=== PATIENT | male | born 1935 | race Caucasian/White ===

== ENCOUNTER 2016-12-13 16:32 | Emergency (ER) | payer MEDICARE, OTHER ==
--- NOTE | 2016-12-13 17:08 | ED.PDOC ---
History of Present Illness - General Chief Complaint: Laceration Time Seen by Provider: 12/13/16 16:59 Source: patient, family - History of Present Illness Initial Comments: PT FELL AT [employer]. STRUCK SOME METAL ON THE WAY DOWN. HAS LACERATION TO R RING FINGER AND ABRASION TO L ELBOW. Severity: moderate Improving Factors: nothing Worsening Factors: nothing Associated Symptoms: other - NO LOC Allergies/Adverse Reactions: Allergies Penicillins Allergy (Verified 12/21/15 15:48) Home Medications: Ambulatory Orders Acetaminophen [Tylenol] 500 mg PO PRN PRN 08/08/15 Aspirin [Baby Aspirin] 81 mg PO QD 08/08/15 Atorvastatin Calcium [Lipitor] 40 mg PO DAILY 08/08/15 Cetirizine HCl [ZyrTEC] 10 mg PO DAILY 08/08/15 Clopidogrel Bisulfate [Plavix] 75 mg PO QD 08/08/15 Cyanocobalamin [Vitamin B12] 1,000 mcg PO DAILY 08/08/15 Dicyclomine HCl [Bentyl] 10 mg PO BID 08/08/15 Ezetimibe [Zetia] 10 mg PO DAILY 08/08/15 Furosemide [Lasix] 40 mg PO DAILY 08/08/15 Gabapentin [Neurontin] 600 mg PO BID 08/08/15 Owasgdvovkp-Wjmcynaozsd-Uofpxs [Glucosamine & Chrondroiti] 1 pow PO DAILY HYDROcodone 5MG/APAP 325MG [[place] 5/325] 1 tab PO PRN PRN 08/08/15 Ibandronate Sodium [Boniva] 150 mg PO MONTHLY 08/08/15 Multiple Vitamins W/ Minerals [Multivital] 1 tab PO DAILY 08/08/15 Pantoprazole Sodium [Protonix] 40 mg PO DAILY 08/08/15 Polyethylene Glycol 3350 [Miralax] 17 gm PO DAILY 08/08/15 Potassium Chloride [Micro-K] 10 meq PO DAILY 08/08/15 Sertraline HCl [Zoloft] 50 mg PO DAILY 08/08/15 Triamcinolone Acetonide (Topic [Triamcinolone Acetonide] 0.1 % EX TID 08/08/15 Cephalexin Monohydrate [Keflex] 500 mg PO TID #1 cap 12/13/16 Review of Systems - Review of Systems Constitutional: Denies: chills, fever EENTM: Denies: eye pain, blurred vision Respiratory: Denies: cough, short of breath, wheezing Cardiology: Denies: chest pain, palpitations, syncope Gastrointestinal/Abdominal: Denies: abdominal pain, nausea, vomiting Genitourinary: States: no symptoms reported Musculoskeletal: States: back pain. Denies: neck pain Skin: States: other - LACERATION TO R RING FINGER AND L ELBOW OVER LATERAL EPICONDYLE Neurological: Denies: headache, numbness, weakness Endocrine: States: no symptoms reported Hematologic/Lymphatic: States: no symptoms reported Past Medical History (General) - Patient Medical History Hx Asthma: No Hx of COPD: No Hx Cardiac Disorders: Yes Hx Congestive Heart Failure: No Hx Pacemaker: No Hx Hypertension: No Hx Diabetes: No Hx Gastroesophageal Reflux: Yes Hx Cancer: No - Vaccination History Hx Tetanus, Diphtheria Vaccination: No Hx Influenza Vaccination: Yes Hx Pneumococcal Vaccination: Yes - Social History Hx Tobacco Use: No Hx Alcohol Use: No Hx Substance Use: No Family Medical History - Family History Father Family History: Unknown Physical Exam - Physical Exam General Appearance: Comfortable, No apparent distress Eye Exam: bilateral normal Ears, Nose, Throat: normal ENT inspection, other - NO EVIDENCE OF TRAUMA Neck: non-tender, full range of motion, supple, normal inspection Respiratory: lungs clear, normal breath sounds, no respiratory distress Cardiovascular/Chest: regular rate, rhythm, no murmur Gastrointestinal/Abdominal: normal bowel sounds, non tender, soft, no organomegaly Back Exam: normal inspection, vertebral tenderness - LUMBAR SPINE Extremity: normal range of motion, other - STELLATE LACERATION TO R RING FINGER MIDDLE PHALANX PALMAR ASPECT WITH SUB Q TISSUE EXPOSED AND SKIN TEAR OVER L ELBOW LATERAL EPICONDYLE. NO BONY DEF. NVI Neurologic: no motor/sensory deficits, normal mood/affect, oriented x 3 Skin Exam: normal color, warm/dry Lymphatic: no adenopathy Progress - EKG/XRAY/CT XRAY: LS SPINE, PREVIOUS KYPHOPLASTY, NO ACUTE FX NOTED. - CADENCE, NO PTX, NO DISPLACED RIB FX ON CXR OR RIB SERIES Procedures - Laceration/Wound Repair Right Finger Wound Length (cm): 3.5 - STELLATE LACERATION FLEXOR SURFACE EXPLORED, NO APPARENT TENDON INVOLVEMENT Wound Explored: no foreign body removed Betadine Prep?: Yes Anesthesia: 1% Lidocaine Wound Repaired With: sutures Suture Size/Type: 4:0, prolene Layer Closure?: No Departure - Departure Clinical Impression: Laceration of finger of right hand Qualifiers: Encounter type: initial encounter Qualifier Code: (S61.219A) Laceration without foreign body of unspecified finger without damage to nail, initial encounter Contusion of chest wall Qualifiers: Encounter type: initial encounter Laterality: left Qualifier Code: (S20.212A) Contusion of left front wall of thorax, initial encounter Skin tear of elbow without complication Qualifiers: Encounter type: initial encounter Laterality: left Qualifier Code: (S51.012A) Laceration without foreign body of left elbow, initial encounter Time of Disposition: 20:04 Disposition: Discharge to Home or Self Care Condition: Good Departure Forms: ED Discharge - Pt. Copy, Patient Portal Self Enrollment Instructions: DI for Laceration Repair -- Finger Prescriptions: Cephalexin Monohydrate [Keflex] 500 mg PO TID #1 cap Home Medications: Ambulatory Orders Acetaminophen [Tylenol] 500 mg PO PRN PRN 08/08/15 Aspirin [Baby Aspirin] 81 mg PO QD 08/08/15 Atorvastatin Calcium [Lipitor] 40 mg PO DAILY 08/08/15 Cetirizine HCl [ZyrTEC] 10 mg PO DAILY 08/08/15 Clopidogrel Bisulfate [Plavix] 75 mg PO QD 08/08/15 Cyanocobalamin [Vitamin B12] 1,000 mcg PO DAILY 08/08/15 Dicyclomine HCl [Bentyl] 10 mg PO BID 08/08/15 Ezetimibe [Zetia] 10 mg PO DAILY 08/08/15 Furosemide [Lasix] 40 mg PO DAILY 08/08/15 Gabapentin [Neurontin] 600 mg PO BID 08/08/15 Rrwwxjwqwvu-Odtpptbijyz-Iksgyv [Glucosamine & Chrondroiti] 1 pow PO DAILY HYDROcodone 5MG/APAP 325MG [[place] 5/325] 1 tab PO PRN PRN 08/08/15 Ibandronate Sodium [Boniva] 150 mg PO MONTHLY 08/08/15 Multiple Vitamins W/ Minerals [Multivital] 1 tab PO DAILY 08/08/15 Pantoprazole Sodium [Protonix] 40 mg PO DAILY 08/08/15 Polyethylene Glycol 3350 [Miralax] 17 gm PO DAILY 08/08/15 Potassium Chloride [Micro-K] 10 meq PO DAILY 08/08/15 Sertraline HCl [Zoloft] 50 mg PO DAILY 08/08/15 Triamcinolone Acetonide (Topic [Triamcinolone Acetonide] 0.1 % EX TID 08/08/15 Cephalexin Monohydrate [Keflex] 500 mg PO TID #1 cap 12/13/16
[2016-12-13] MEDS ORDERED: LIDOCAINE 1% 10 ML VIAL INJ ONE (17:34)
[2016-12-13] MEDS ORDERED: BUPIVACAINE 0.5% W/EPI 30 ML VIAL INJ ONE (17:34)
[2016-12-13] MEDS ORDERED: POVIDONE IODINE 10 % 15 ML UD TOP ONE (17:34)
[2016-12-13] MEDS ORDERED: BUPIVACAINE 0.5% 30 ML VIAL INJ ONE (17:55)
--- NOTE | 2016-12-13 18:02 | RAD ---
EXAM: Fingers,Right CLINICAL INDICATION: 81-year-old male status post fall onto metal with laceration. TECHNIQUE: Three views RIGHT distal fingers were obtained in AP, lateral and oblique projections COMPARISON: None. FINDINGS: The lateral view is limited secondary to overlapping digits. There is no fracture or dislocation. No soft tissue abnormalities are seen. Mild degenerative changes are noted with osteophyte formation mild joint space narrowing present at the second and third metacarpal phalangeal joint spaces with osteophyte formation. IMPRESSION: Mild degenerative change without acute radiographic abnormality. Electronically signed by: Kaylan Tate MD 12/13/2016 6:01 PM REGULATORY AFFAIRS SPECIALIST
--- NOTE | 2016-12-13 18:03 | RAD ---
EXAM: Elbow,Left 2 Views CLINICAL INDICATION: 81-year-old male status post fall with abrasion. TECHNIQUE: Two views of the LEFT elbow were obtained in AP, and lateral projections. COMPARISON: None. FINDINGS: There is no fracture or dislocation. The joint spaces are preserved. No soft tissue abnormalities are seen. No joint effusion. Olecranon enthesophyte. IMPRESSION: No acute radiographic abnormality. Electronically signed by: Kaylan Tate MD 12/13/2016 6:02 PM FRUIT AND VEGETABLE INSPECTOR
--- NOTE | 2016-12-13 18:07 | RAD ---
EXAM: Lumbar Spine 3 Views CLINICAL INDICATION: 81-year-old male status post fall with abrasion. TECHNIQUE: Three views of the lumbar spine were obtained in AP, lateral, and spot projections. COMPARISON: Lumbar spine radiographs 12/28/2015. FINDINGS: Alignment of the lumbar spine is within normal limits. There is no subluxation. Morphology of the vertebral bodies and intervertebral disc spaces is compatible with diffuse demineralization limiting assessment for subtle fracture, moderate multilevel degenerative change. Loss of disk height is present throughout the lumbar spine. Loss of vertebral body height present at the L3 level with vertebroplasty cement. Slight loss of superior vertebral body height of the L4 vertebral level worsened in comparison to the previous examination findings of which raise the concern for age indeterminate tubal body fracture. Further assessment with CT or MRI is recommended. Degenerative facet hypertrophy present. The remainder of the visualized bones are within normal limits. However, the midline sacral structures are not clearly visualized secondary to overlying density and bowel gas. IMPRESSION: 1. Interval loss of L4 level superior vertebral body height raising the concern for age indeterminate fracture. Further evaluation with with MRI or CT is recommended. 2. Moderate degenerative change as detailed above. Electronically signed by: Kaylan Tate MD 12/13/2016 6:06 PM REDEVELOPMENT SPECIALIST
--- NOTE | 2016-12-13 18:13 | RAD ---
Following auto EXAM: Chest,1 View (accession [id number]), Ribs,Left 3 Views (accession [id number]) CLINICAL INDICATION: 81-year-old male status post fall with pain. TECHNIQUE: 1. Single view, AP portable chest was obtained. 2. Three views of the LEFT ribs were obtained in multiple projection. COMPARISON: Chest radiograph 08/08/2015. Lumbar spine radiograph 12/28/2015. FINDINGS: Chest: Stable cardiac and mediastinal silhouette. Heart size is normal. Median sternotomy wires. Lungs are clear without focal opacity, pneumothorax or pleural effusions. Ribs: The visualized bones are within normal limits. Irregularity of the posterior fifth and sixth ribs with callus formation similar comparison to the previous examination compatible with sequela of prior rib fracture. IMPRESSION: 1. No acute cardiopulmonary abnormalities. 2. No specific bone findings are noted to suggest etiology of the patient's pain. 3. Interval compression deformity of the T12 vertebral level of indeterminate age. Further evaluation with CT or MRI may be considered. Electronically signed by: Kaylan Tate MD 12/13/2016 6:12 PM MEDICAL BILLING AND CODING SPECIALIST
--- NOTE | 2016-12-13 18:13 | RAD ---
Following auto EXAM: Chest,1 View (accession [id number]), Ribs,Left 3 Views (accession [id number]) CLINICAL INDICATION: 81-year-old male status post fall with pain. TECHNIQUE: 1. Single view, AP portable chest was obtained. 2. Three views of the LEFT ribs were obtained in multiple projection. COMPARISON: Chest radiograph 08/08/2015. Lumbar spine radiograph 12/28/2015. FINDINGS: Chest: Stable cardiac and mediastinal silhouette. Heart size is normal. Median sternotomy wires. Lungs are clear without focal opacity, pneumothorax or pleural effusions. Ribs: The visualized bones are within normal limits. Irregularity of the posterior fifth and sixth ribs with callus formation similar comparison to the previous examination compatible with sequela of prior rib fracture. IMPRESSION: 1. No acute cardiopulmonary abnormalities. 2. No specific bone findings are noted to suggest etiology of the patient's pain. 3. Interval compression deformity of the T12 vertebral level of indeterminate age. Further evaluation with CT or MRI may be considered. Electronically signed by: Kaylan Tate MD 12/13/2016 6:12 PM SUBWAY REPAIR SUPERVISOR
[2016-12-13 19:28] VITALS: TEMP 99
[2016-12-13] MEDS ORDERED: TETANUS-DIPHTHERIA TOXOIDS (TD 1 EA SYG IM ONE (20:07)
[2016-12-13] MEDS ORDERED: NEOMYCIN-BACITRACIN-POLYMYXIN 0.9 GM UD TOP ONE (20:37)
[2016-12-13 20:57] VITALS: O2SAT 98
[2016-12-13 20:58] VITALS: BP 146/69
--- NOTE | 2016-12-23 00:15 | RAD ---
EXAM: Elbow,Left 2 Views CLINICAL INDICATION: 81-year-old male status post fall with abrasion. TECHNIQUE: Two views of the LEFT elbow were obtained in AP, and lateral projections. COMPARISON: None. FINDINGS: There is no fracture or dislocation. The joint spaces are preserved. No soft tissue abnormalities are seen. No joint effusion. Olecranon enthesophyte. IMPRESSION: No acute radiographic abnormality. Electronically signed by: Kaylan Tate MD 12/13/2016 6:02 PM CARD TABLE ATTENDANT
--- NOTE | 2016-12-23 00:15 | RAD ---
Following auto EXAM: Chest,1 View (accession [id number]), Ribs,Left 3 Views (accession [id number]) CLINICAL INDICATION: 81-year-old male status post fall with pain. TECHNIQUE: 1. Single view, AP portable chest was obtained. 2. Three views of the LEFT ribs were obtained in multiple projection. COMPARISON: Chest radiograph 08/08/2015. Lumbar spine radiograph 12/28/2015. FINDINGS: Chest: Stable cardiac and mediastinal silhouette. Heart size is normal. Median sternotomy wires. Lungs are clear without focal opacity, pneumothorax or pleural effusions. Ribs: The visualized bones are within normal limits. Irregularity of the posterior fifth and sixth ribs with callus formation similar comparison to the previous examination compatible with sequela of prior rib fracture. IMPRESSION: 1. No acute cardiopulmonary abnormalities. 2. No specific bone findings are noted to suggest etiology of the patient's pain. 3. Interval compression deformity of the T12 vertebral level of indeterminate age. Further evaluation with CT or MRI may be considered. Electronically signed by: Kaylan Tate MD 12/13/2016 6:12 PM STREETCAR REPAIRER
--- NOTE | 2016-12-23 00:15 | RAD ---
Following auto EXAM: Chest,1 View (accession [id number]), Ribs,Left 3 Views (accession [id number]) CLINICAL INDICATION: 81-year-old male status post fall with pain. TECHNIQUE: 1. Single view, AP portable chest was obtained. 2. Three views of the LEFT ribs were obtained in multiple projection. COMPARISON: Chest radiograph 08/08/2015. Lumbar spine radiograph 12/28/2015. FINDINGS: Chest: Stable cardiac and mediastinal silhouette. Heart size is normal. Median sternotomy wires. Lungs are clear without focal opacity, pneumothorax or pleural effusions. Ribs: The visualized bones are within normal limits. Irregularity of the posterior fifth and sixth ribs with callus formation similar comparison to the previous examination compatible with sequela of prior rib fracture. IMPRESSION: 1. No acute cardiopulmonary abnormalities. 2. No specific bone findings are noted to suggest etiology of the patient's pain. 3. Interval compression deformity of the T12 vertebral level of indeterminate age. Further evaluation with CT or MRI may be considered. Electronically signed by: Kaylan Tate MD 12/13/2016 6:12 PM SUPERVISOR CORRESPONDENCE SECTION
== END 2016-12-13 21:05 | disposition home or self-care (01) ==
LOC: ER 16:32
DX: S61.214A Laceration without foreign body of right ring finger without damage to nail, initial encounter (principal); S20.212A Contusion of left front wall of thorax, initial encounter; S51.012A Laceration without foreign body of left elbow, initial encounter; Z79.82 Long term (current) use of aspirin; Z79.02 Long term (current) use of antithrombotics/antiplatelets; Z79.899 Other long term (current) drug therapy; Z88.0 Allergy status to penicillin; Z23 Encounter for immunization; W18.09XA Striking against other object with subsequent fall, initial encounter

== ENCOUNTER → 2016-12-20 | Outpatient (CLI) | payer MEDICARE, OTHER ==
--- NOTE | 2016-12-22 14:22 | MRI ---
EXAM DESCRIPTION: MR BRAIN WITHOUT IV CONTRAST CLINICAL HISTORY: ALTERED MENTAL STATUS COMPARISON: None Available. TECHNIQUE: Multi planar, multi sequence MRI evaluation of the brain without contrast. FINDINGS: No intracranial hemorrhage, infarction, or mass lesion. T2/FLAIR signal hyperintensities in the subcortical white matter, nonspecific yet most likely microvascular ischemic change. There is also global parenchymal volume loss. Ventricles are normal in size and configuration Normal flow voids are present in the major intracranial arteries and dural venous sinuses No abnormality is seen along the course of the cranial nerves. Normal appearance of the temporal bones Orbits are grossly normal Normal aeration of paranasal sinuses and mastoid air cells IMPRESSION: Nonacute MRI of the brain without contrast. Microvascular ischemic changes and global parenchymal volume loss. Electronically signed by: Pierce Diamond 12/22/2016 14:20
--- NOTE | 2016-12-22 15:12 | MRI ---
EXAM DESCRIPTION: MR LUMBAR SPINE WITHOUT IV CONTRAST CLINICAL HISTORY: WEDGE COMPRESSION FX COMPARISON: Radiographs of the lumbar spine on 12/13/2016. TECHNIQUE: Standard sagittal and axial MR images of the lumbar spine. No contrast administered. FINDINGS: Transitional lumbosacral anatomy with last fully formed disc space with TB nomenclature to S1-S2 on this examination. This numbering system is consistent with prior radiograph on December 13, 2016 prior scrubbed for moderate extra pole a Prior vertebral augmentation procedure noted at L3. This appears well healed without complication. No extra osseous cement identified. There is an acute compression fracture of L4, with approximately 20% vertebral body height centrally and 10% posteriorly. No retropulsed fragments or evidence of high-grade spinal canal at this level. There is mild prevertebral and paravertebral soft tissue swelling. Conus medullaris terminates in the mid L1 level. T12-L1: Unremarkable. L1-2: Unremarkable. L2-3: Broad-based disc bulge and mild facet arthrosis. No spinal canal or foraminal stenosis. L3-4: Broad-based disc bulge with mild ligamentum flavum and facet hypertrophy. There is overall mild spinal canal stenosis. No foraminal stenosis. L4-5: Trace circumferential disc bulge. Mild facet arthrosis. No spinal canal or foraminal stenosis. L5-S1: Trace disc bulge with mild facet arthrosis. No spinal canal or foraminal stenosis. S1-S2: Unremarkable. IMPRESSION: Acute L4 compression fracture as outlined above. No evidence of retropulsion or spinal canal stenosis. Treated L3 compression fracture. Lumbar spondylosis as above. Electronically signed by: Pierce Diamond 12/22/2016 15:10
--- NOTE | 2016-12-22 15:42 | MRI ---
EXAM DESCRIPTION: MR THORACIC SPINE WITHOUT IV CONTRAST CLINICAL HISTORY: WEDGE COMPRESSION FX COMPARISON: None. TECHNIQUE: Multiplanar multisequence imaging of the thoracic spine was performed on a [place] magnet, without administration of intravenous gadolinium. FINDINGS: The vertebral body heights are normal. There are no marrow signal abnormalities. There is a focal large right paracentral disk protrusion measuring 6 x 4 mm at T7-T8 asymmetric to the left. This results in mass effect and moderate compression of the thoracic cord. There is T2 hyperintensity within the disc herniation. There is overall moderate to severe spinal canal stenosis at this level. While there is mass effect on the thoracic cord at the T7-T8 level, the remainder of the cord is normal in signal morphology. No intrathecal or extradural mass lesions. The remaining disc signals are normal without focal disk herniation or disk bulge. There is no high-grade spinal canal or foraminal stenosis within the remainder of the thoracic spine. Prevertebral and paravertebral soft tissues are within normal limits. Seen in described to better advantage on the lumbar examination, there is an acute L4 compression fracture seen in the lumbar spine. IMPRESSION: Large left paracentral disc protrusion at T7-T8 as outlined above. There is mass effect on the thoracic cord without myelomalacia or cord signal alteration. Otherwise, nonacute thoracic spine MRI. Acute L4 compression fracture in the lumbar spine on the job trainer images. See MRI of lumbar spine report for further details. Electronically signed by: Pierce Diamond 12/22/2016 15:40
== END | disposition home or self-care (01) ==
LOC: MRI 08:44
PROVIDERS: ATTEND Family Medicine
DX: R41.82 Altered mental status, unspecified (principal); S32.040S Wedge compression fracture of fourth lumbar vertebra, sequela

== ENCOUNTER → 2017-07-29 | Outpatient (CLI) | payer MEDICARE, OTHER | END | disposition home or self-care (01) | LOC: GMAB 10:38 | PROVIDERS: ATTEND Family Medicine | DX: Z12.5 Encounter for screening for malignant neoplasm of prostate (principal); I10 Essential (primary) hypertension; E03.9 Hypothyroidism, unspecified | CPT/HCPCS: 84439; 84443; 84481; G0103 ==

== ENCOUNTER → 2018-02-02 | Outpatient (CLI) | payer MEDICARE, OTHER | END | disposition home or self-care (01) | LOC: GMAB 16:39 | PROVIDERS: ATTEND Family Medicine | DX: E03.9 Hypothyroidism, unspecified (principal) ==

== ENCOUNTER → 2018-04-09 | Outpatient (CLI) | payer MEDICARE, OTHER ==
--- NOTE | 2018-04-10 07:38 | MRI ---
EXAM DESCRIPTION: Lumbar Spine w/o Contrast CLINICAL HISTORY: 82 years Male, WEDGE COMPRESSION FX OF FIFTH VERTEBRAE COMPARISON: MRI of the lumbar spine dated 12/20/2016. TECHNIQUE: Multiplanar multiecho imaging of the lumbar spine was performed without intravenous contrast administration. FINDINGS: The normal lordotic curvature of the lumbar spine is well preserved. Changes of vertebroplasty are again identified in L3 and L4 vertebral bodies. Interval development of bone marrow edema and L5 vertebral body with superior endplate compression and loss of 20% vertebral body height. Multilevel intervertebral disc space narrowing is noted. The conus medullaris terminates at L1 vertebral body. The visualized spinal cord demonstrates no signal abnormality. L1-L2: Normal L2-L3: Mild disc bulge with no canal stenosis. There is mild to moderate bilateral neural foraminal narrowing secondary to facet arthropathy. L3-L4: Diffuse disc bulge, ligamentum flavum hypertrophy and facet arthropathy with resultant mild canal stenosis and moderate bilateral neural foraminal narrowing. L4-L5: Diffuse disc bulge with a superimposed central and left paracentral disc protrusion resulting in impingement of the traversing left L5 nerve root. There is mild bilateral neural foraminal narrowing secondary to facet arthropathy. L5-S1: Diffuse disc bulge and bilateral facet arthropathy with no significant canal stenosis. There is moderate bilateral neural foraminal narrowing worse on the right side. The visualized prevertebral and paravertebral soft tissues appear unremarkable. IMPRESSION: Acute superior endplate compression fracture of L5 vertebral body with approximately 20% loss of vertebral body height. Multilevel degenerative disc disease and facet arthropathy as detailed above. Electronically signed by: Verenice Gil MD 04/10/2018 7:37 AM CDT
== END ==
LOC: MRI 14:00
PROVIDERS: ATTEND Family Medicine
DX: S32.050S Wedge compression fracture of fifth lumbar vertebra, sequela (principal)